=== PATIENT | female | born 1985 | race Caucasian/White ===

== ENCOUNTER 2019-02-21 21:40 | Emergency (ER) | payer BC ==
[2019-02-21 22:13] LABS: BILIRUBIN,URINE NEGATIVE (NEGATIVE); GLUCOSE, URINE (UA) NEGATIVE (NEGATIVE); KETONES,URINE (UA) NEGATIVE (NEGATIVE); LEUKOCYTE ESTERASE, URINE NEGATIVE (NEGATIVE); NITRITE,URINE NEGATIVE (NEGATIVE); OCCULT BLOOD,URINE NEGATIVE (NEGATIVE); PH,URINE 6.5 PH (5.0-7.5); PROTEIN,URINE NEGATIVE (NEGATIVE); UROBILINOGEN,URINE 0.2 (NORMAL) E.U./dL (NORMAL)
[2019-02-21 22:19] LABS: CLARITY,URINE CLEAR (CLEAR)
--- NOTE | 2019-02-21 22:43 | ED Physician Documentation ---
PD HPI FEMALE - Stated complaint Stated Complaint: ABD PX/19 WKS PREG - Chief complaint Chief Complaint: Abd Pain - History obtained from History obtained from: Patient, Family - History of Present Illness Timing - onset: Enter time (1714), Today Timing - duration: Hours Timing - details: Abrupt onset, Now resolved Associated symptoms: Abdominal pain, Vaginal bleeding Contributing factors: OB-LIEUTENANT GENERAL History: G (2), P (1) Similar symptoms before: Has not had sx before Recently seen: Clinic - Additional information Additional information: 34-year-old female who is getting routine pre- care at [facility] and who is about 19 weeks was at work today when she developed acute left flank pain radiating down to the front. She states the pain was severe and it nearly doubled her over. She reports pain lasting about an hour and a half it is since resolved and she is no longer having pain or tenderness. She reports that at one point there was some tenderness along the left lower quadrant this now is has resolved. She did have some spotting as well. Review of Systems Constitutional: denies: Fever Eyes: denies: Decreased vision Ears: denies: Ear pain Nose: denies: Rhinorrhea / runny nose, Congestion Throat: denies: Sore throat Cardiac: denies: Chest pain / pressure, Palpitations Respiratory: denies: Dyspnea, Cough GI: reports: Abdominal Pain. denies: Nausea, Vomiting, Constipation, Diarrhea : denies: Dysuria, Frequency, Hematuria Skin: denies: Rash Musculoskeletal: denies: Neck pain, Back pain, Extremity pain Neurologic: denies: Generalized weakness, Focal weakness, Numbness PD PAST MEDICAL HISTORY - Past Medical History Past Medical History: No Cardiovascular: None Respiratory: None Neuro: None Endocrine/Autoimmune: None GI: None LIEUTENANT GENERAL: None : None HEENT: None Psych: None Musculoskeletal: None Derm: None - Past Surgical History Past Surgical History: No - Allergies Allergies/Adverse Reactions: Allergies Allergy/AdvReac Type Severity Reaction Status Date / Time No Known Drug Allergies Allergy Verified 02/21/19 22:07 - Social History Does the pt smoke?: No Smoking Status: Never smoker Does the pt drink ETOH?: No Does the pt have substance abuse?: No - Immunizations Immunizations are current?: Yes - POLST Patient has POLST: No PD ED PE NORMAL - Vitals Vital signs reviewed: Yes (normal ) - General General: Alert and oriented X 3, No acute distress, Well developed/nourished - HEENT HEENT: Atraumatic, PERRL, EOMI - Neck Neck: Supple, no meningeal sign, No bony TTP - Cardiac Cardiac: RRR, No murmur - Respiratory Respiratory: No respiratory distress, Clear bilaterally - Abdomen Abdomen: Normal bowel sounds, Soft, Non tender, Non distended, Other (uterus palpable to the umbilicus and is non-tender. 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, No motor deficit, No sensory deficit, Normal speech Eye Opening: Spontaneous Motor: Obeys Commands Verbal: Oriented GCS Score: 15 - Psych Psych: Normal mood, Normal affect Results - Vitals Vitals: Vital Signs - 24 hr 02/21/19 21:50 Temperature 37.3 C Heart Rate 84 Respiratory 17 Rate Blood Pressure 114/76 O2 Saturation 99 Oxygen O2 Source Room air - Labs Labs: Laboratory Tests 02/21/19 21:50 Urine Color YELLOW Urine Clarity CLEAR Urine pH 6.5 Ur Specific Harrah <=1.005 Urine Protein NEGATIVE Urine Glucose (UA) NEGATIVE Urine Ketones NEGATIVE Urine Occult Blood NEGATIVE Urine Nitrite NEGATIVE Urine Bilirubin NEGATIVE Urine Urobilinogen 0.2 (NORMAL) Ur Leukocyte Esterase NEGATIVE Ur Microscopic Review NOT INDICATED Urine Culture Comments NOT INDICATED Procedures - Bedside sono Bedside sono by EMP: With use of bedside ultrasound the left and right kidney are imaged there is mild hydronephrosis present bilaterally and symmetrically. The kidneys are sonographically nontender. The fetus is imaged and is active has a heart rate of 156. The biparietal diameter suggest a gestational age of 20 weeks. PD MEDICAL DECISION MAKING - ED course Complexity details: reviewed results, re-evaluated patient, considered differential, d/w patient, d/w family ED course: 34-year-old previously well gravid female has developed acute left flank pain that is now resolved. There is no trace of specific abnormality. Departure - Departure Disposition: 01 Home, Self Care Clinical Impression: Flank pain Condition: Stable Instructions: ED Flank Pain Uncertain Cause Follow-Up: Your, doctor [Other] Comments: Today we did not find an explanation for your acute flank pain. The most likely explanation for the pain you have been describing is a kidney stone and this likely has passed. We do not expect further pain associated with this if this is the cause. Follow-up with your CLINICAL [facility]EARCH TECH doctor. Today your fetus appeared entirely normal.
[2019-02-21 23:17] VITALS: BP 106/75
== END 2019-02-21 23:18 | disposition home or self-care (01) ==
LOC: ED 21:40
DX: O99.89 Other specified diseases and conditions complicating pregnancy, childbirth and the puerperium (principal); N13.30 Unspecified hydronephrosis; R10.9 Unspecified abdominal pain; Z3A.20 20 weeks gestation of pregnancy
CPT/HCPCS: 81001; 81003; 87086; 99282; 99283